=== PATIENT | male | born 1935 | race Caucasian/White ===

== ENCOUNTER 2017-05-17 11:40 | Emergency (ER) | payer OTHER, MEDICAID ==
[~2017-05-17] VITALS: Ht 160 cm; Wt 73.0 kg
[2017-05-17 11:53] VITALS: BP 134/62
[2017-05-17 12:40] LABS: APPEARANCE,URINE CLEAR (CLEAR); BILIRUBIN,URINE NEGATIVE (NEGATIVE); BLOOD, URINE TRACE-I (NEGATIVE); COLOR,URINE YELLOW (YELLOW); LEUKOCYTE ESTERASE ,URINE NEGATIVE (NEGATIVE); NITRITE, URINE NEGATIVE (NEGATIVE); UGLUCOSE 1+ (NEGATIVE)
[2017-05-17 12:49] LABS: BASOPHILS # (AUTO) 0.1 K/uL (0.00-0.22); BASOPHILS % (AUTO) 1.2 % (0.0-2.0); EOSINOPHILS % (AUTO) 0.4 % (0.0-4.0); HEMATOCRIT 32.6 % (36-52); HEMOGLOBIN 11.2 g/dL (12.0-18.0); LYMPHOCYTES # (AUTO) 0.6 K/uL (2.0-11.5); LYMPHOCYTES % (AUTO) 6.7 % (20.5-51.1); MEAN CORPUSCULAR HEMOGLOBIN 30 pg (27-31); MEAN CORPUSCULAR HGB CONC 34 g/dL (33-37); MEAN CORPUSCULAR VOLUME 87 fL (80-94); MONOCYTES # (AUTO) 0.5 K/uL (0.8-1.0); MONOCYTES % (AUTO) 5.4 % (1.7-9.3); NEUTROPHILS # (AUTO) 8.4 K/uL (1.8-7.7); NEUTROPHILS % (AUTO) 86.3 % (42.2-75.2); PLATELET COUNT (AUTO) 131 K/uL (140-450); RED BLOOD CELL COUNT(AUTO) 3.76 MIL/uL (4.20-6.10); RED CELL DISTRIBUTION WIDTH 12.4 % (11.6-13.7); WHITE BLOOD COUNT (AUTO) 9.6 K/uL (4.8-10.8)
[2017-05-17 12:53] LABS: RBC,URINE 0-5 (RARE) /HPF (0-5); WBC,URINE 0-5 (RARE) /HPF (0-5)
[2017-05-17 13:14] LABS: ALBUMIN 4.3 g/dL (3.4-5.0); ANION GAP 14.4 (8-16); ASPARTATE AMINOTRANSFERASE 7 U/L (15-37); CARBON DIOXIDE 22.3 mmol/L (21-32); CHLORIDE 106 mmol/L (98-107); CREATININE 2.9 mg/dL (0.7-1.3); GLUCOSE 290 mg/dL (74-106); POTASSIUM 5.7 mmol/L (3.5-5.1); SODIUM SERUM 137 mmol/L (136-145); TOTAL BILIRUBIN 0.7 mg/dL (0.0-1.0); UREA NITROGEN, BLOOD 42 mg/dL (7-18)
--- NOTE | 2017-05-17 13:15 | NUR ---
Patient ambulated to bed 9 at this time.
--- NOTE | 2017-05-17 13:29 | NUR ---
PT PRESENTS TO ER W/C/O GENERALIZED WEAKNESS AND LBP ARDIATING TO LOWER ABDOMEN AND BLE X1 MONTH INTERMITTENTLY.HX of DM, HYPOTHYROIDISM.PT STATES HE HAS A RUNNY NOSE. DENIES N/V/D; SKIN IS PINK/WARM/DRY; AAOX4 WITH EVEN AND STEADY GAIT; LUNGS CLEAR BL; HR EVEN AND REGULAR; PT DENIES ANY FEVER, CP, SOB, OR COUGH AT THIS TIME; PATIENT STATES PAIN OF 6/10 AT THIS TIME;PATIENT POSITIONED FOR COMFORT; HOB ELEVATED; BEDRAILS UP X2; BED DOWN.ALL MONITORS IN PLACED; ER MD MADE AWARE OF PT STATUS.
[2017-05-17] MEDS ORDERED: LEVOFLOXACIN 500 MG/D5W PREMIX 100 ML IV ONE (14:35)
[2017-05-17] MEDS ORDERED: metroNIDAZOLE 500 MG/NS PREMIX 100 ML IV ONE (14:35)
[2017-05-17] MEDS ORDERED: MORPHINE SULFATE 2 MG/ML SYR IVP ONE (14:45)
[2017-05-17] MEDS ORDERED: ONDANSETRON 4 MG/2 ML VIAL IVP ONE (14:45)
[2017-05-17] MEDS ORDERED: NACL 0.9% 1,000 ML IV ONE (14:45)
[2017-05-17 14:54] LABS: AMYLASE 58 U/L (25-115); LIPASE 162 U/L (73-393)
--- NOTE | 2017-05-17 15:06 | NUR ---
PT BACK FROM X RAY.
[2017-05-17] MEDS ORDERED: SODIUM POLYSTYRENE 15 GM/60 ML UDBTL PO ONE (16:05)
[2017-05-17] MEDS ORDERED: GLIP5TAB4 PO (16:15)
[2017-05-17] MEDS ORDERED: VALS160T2 PO (16:15)
[2017-05-17] MEDS ORDERED: SIMV20TA1 PO (16:15)
[2017-05-17] MEDS ORDERED: SYN.05 PO (16:15)
[2017-05-17] MEDS ORDERED: ACT30 PO (16:18)
[2017-05-17] MEDS ORDERED: ALBUTEROL 0.083% 2.5 MG/3 ML NEBU INH ONE (16:35)
[2017-05-17] MEDS ORDERED: INSULIN HUMAN REGULAR 100 UNITS/ML 10 ML VIAL IVP ONE (16:35)
--- NOTE | 2017-05-17 16:36 | NUR ---
DAUGHTER AT BEDSIDE. Patient appears to be resting comfortably in bed. BP 137/66, P81/MINS, O2 SAT 98%. Respirations even and unlabored. DENIES PAIN AT THIS TIME. WILL CONTINUE TO MONITOR,
--- NOTE | 2017-05-17 16:58 | NUR ---
RT AT BEDSIDE FOR BREATHING TREATMENT.
[2017-05-17] MEDS ORDERED: ACETAMINOPHEN 325 MG TAB PO PRN (17:25)
[2017-05-17] MEDS ORDERED: HYDROcodone/APAP 5/325 MG 1 TAB TAB PO PRN (17:25)
[2017-05-17] MEDS ORDERED: LORazepam 2 MG/ML VIAL IVP PRN (17:25)
[2017-05-17] MEDS ORDERED: DEXTROSE 50% 50 ML SYR IVP PRN (17:25)
[2017-05-17] MEDS ORDERED: INSULIN LISPRO SLIDING SCALE 100 UNITS/ML VIAL SUBQ PRN (17:25)
[2017-05-17] MEDS ORDERED: MORPHINE SULFATE 2 MG/ML SYR IVP PRN (17:25)
[2017-05-17] MEDS ORDERED: ONDANSETRON 4 MG/2 ML VIAL IVP PRN (17:25)
[2017-05-17] MEDS ORDERED: DEXT 5% /NACL 0.9% 1,000 ML IV SCH (17:25)
--- NOTE | 2017-05-17 17:28 | NUR ---
Duglas perkins in ED - 05/17/17 at 1735 by [facility] Patient will be admitted to care of DR Stephen HERNANDEZ. Admited to TELE. Will go to room 121B. Belongings list completed. Report to AMADOU CEJA.
--- NOTE | 2017-05-17 19:41 | NUR ---
CALLED TO GIVE REPORT TO AMADOU ALANIS ; [facility].
--- NOTE | 2017-05-17 19:45 | NUR ---
END TIME NACL 250ML/HR 1945. TOTAL VOLUME INFUSED 1000ML
--- NOTE | 2017-05-17 20:09 | NUR ---
Patient to be transferred to [facility]. Is being transferred due to HIGHER LEVEL OF CARE. Receiving facility has accepting physician and available space. ER physician has signed transfer form. Patient or responsible libertarian has agreed to transfer and signed form. Patient belongings inventoried and will be sent with patient. Copy of nursing notes, lab reports, EKG, Physicians Orders and X-rays to be sent with patient. Report called to ZEKE TOBAR at receiving facility. 1222 ambulance service has been called for transfer. ETA is 1 HOUR .
[2017-05-17 20:10] VITALS: BP 137/66
[2017-05-17] MEDS ORDERED: BLOOD GLUCOSE MONITORING 1 DEV DEV FS SCH (21:00)
[2017-05-17] MEDS ORDERED: SIMVASTATIN 20 MG TAB PO SCH (21:00)
[2017-05-18] MEDS ORDERED: LEVOTHYROXINE 0.05 MG TAB PO SCH (06:30)
[2017-05-18] MEDS ORDERED: glipiZIDE 5 MG TAB PO SCH (08:00)
[2017-05-18] MEDS ORDERED: VALSARTAN 80 MG TAB PO SCH (09:00)
[2017-05-18] MEDS ORDERED: PIOGLITAZONE 30 MG TAB PO SCH (09:00)
== END 2017-05-17 20:10 | disposition short-term general hospital (02) ==
LOC: MED 11:40 → UNDOADMIN 17:27 → MTU 17:27 → MED 20:10
DX: N17.9 Acute kidney failure, unspecified (principal); E87.5 Hyperkalemia; I10 Essential (primary) hypertension; E11.9 Type 2 diabetes mellitus without complications; E03.9 Hypothyroidism, unspecified; Z90.49 Acquired absence of other specified parts of digestive tract; Z79.899 Other long term (current) drug therapy
CPT/HCPCS: 36415; 71010; 74176; 80053; 81001; 82150; 82948; 83605; 83690; 85025; 87040; 94640; 96365; 96367; 96375; 99285; J1815; J1956; J2270; J2405; J3490; J7030; J7613